=== PATIENT | male | born 1990 | race Caucasian/White ===

== ENCOUNTER → 2016-06-24 | Outpatient (RCR) | payer OTHER | LOC: M PT 06-04 14:57 | PROVIDERS: ATTEND Orthopaedic Surgery | DX: S83.002A Unspecified subluxation of left patella, initial encounter (principal); M17.12 Unilateral primary osteoarthritis, left knee; X58.XXXA Exposure to other specified factors, initial encounter; Y92.9 Unspecified place or not applicable ==